=== PATIENT | male | born 1955 | race Caucasian/White ===

== ENCOUNTER 2022-09-22 10:12 | Day surgery (SDC) | payer MEDICARE, OTHER ==
[~2022-09-22 10:12] MED LIST: Lactated Ringers 1,000 ML IV SCH; Sodium Chloride 0.9% 10 ML Syringe FLUSH PRN
[2022-09-22] MEDS ORDERED: fentaNYL 100 MCG/2 ML SDV ONE (11:52)
[2022-09-22] MEDS ORDERED: Propofol 200 MG/20 ML SDV ONE ×2 (11:52→13:06)
[2022-09-22] MEDS ORDERED: ePHEDrine 50 MG/ML SDV ONE (13:34)
== END 2022-09-22 14:27 | disposition home or self-care (01) ==
LOC: VM.SDS 10:12
PROVIDERS: ATTEND Family Medicine
DX: Z12.11 Encounter for screening for malignant neoplasm of colon (principal); D12.6 Benign neoplasm of colon, unspecified; K62.1 Rectal polyp; I10 Essential (primary) hypertension; F32.A Depression, unspecified; E78.5 Hyperlipidemia, unspecified; J30.9 Allergic rhinitis, unspecified; Z98.890 Other specified postprocedural states; Z86.010 Personal history of colon polyps; Z80.0 Family history of malignant neoplasm of digestive organs; Z88.2 Allergy status to sulfonamides; Z79.899 Other long term (current) drug therapy; Z87.891 Personal history of nicotine dependence
CPT/HCPCS: 00811; 88305; J2704; J3010; J7120